=== PATIENT | female | born 1990 | race American Indian/Alaskan Native ===

== ENCOUNTER 2016-12-21 10:50 | Emergency (ER) | payer OTHER ==
[2016-12-21 10:58] VITALS: O2SAT 98; BMI 28.1
[2016-12-21] MEDS ORDERED: Levalbuterol 0.63 MG/3 ML Inhal Soln UD IH STA (11:28)
--- NOTE | 2016-12-21 11:34 | ED PDOC ---
Arrival/HPI - General Chief Complaint: Chest Pain Time Seen by Provider: 12/21/16 11:18 Historian: Patient, Partner - History of Present Illness Narrative History of Present Illness (Text): 12/21/16 11:26 A 26 year old female, whose past medical history includes asthma and migraine headaches, presents to the emergency department complaining of left sided sharp chest pain since yesterday. Patient states her pain is localized under her left breast and radiates to left armpit. She says it is worse with inspiration. She reports a headache and lightheadedness yesterday. Partner reports patient passed out for approximately 1 minute yesterday while standing, but he held her up. Patient was seen [place] [facility] [place] and discharged home after reported normal testing. Patient notes mild shortness of breath but denies any trauma, injury, fever, chills, nausea, vomiting, abdominal pain, lower extremity swelling, headache, dizziness or any other complaints at this time. Patient denies any recent travel or surgeries. Time/Duration: Other (Yesterday) Symptom Course: Unchanged Quality: Other Context: Home Past Medical History - Provider Review Nursing Documentation Reviewed: Yes - Infectious Disease Hx of Infectious Diseases: None - Cardiac Hx Cardiac Disorders: No - Pulmonary Hx Respiratory Disorders: Yes Hx Asthma: Yes - Neurological Hx Neurological Disorder: No - HEENT Hx HEENT Disorder: No - Endocrine/Metabolic Hx Endocrine Disorders: No - Hematological/Oncological Hx Blood Disorders: No - Integumentary Hx Dermatological Disorder: No - Musculoskeletal/Rheumatological Hx Musculoskeletal Disorders: No - Gastrointestinal Hx Gastrointestinal Disorders: No - Genitourinary/Gynecological Hx Genitourinary Disorders: No - Psychiatric Hx Psychophysiologic Disorder: No Hx Substance Use: No - Surgical History Hx Section: Yes (x1) Hx Dilation and Curettage: Yes (x2) - Anesthesia Hx Anesthesia: Yes Hx Anesthesia Reactions: No Family/Social History - Physician Review Nursing Documentation Reviewed: Yes Family/Social History: No Known Family HX Smoking Status: Never Smoked Hx Alcohol Use: Yes Frequency of alcohol use: Socially Hx Substance Use: No Allergies/Home Meds Allergies/Adverse Reactions: Allergies Penicillins Allergy (Verified 12/21/16 10:59) ANAPHYLAXIS -cillins Allergy (Uncoded 12/21/16 10:59) ANAPHYLAXIS seafood Allergy (Uncoded 12/21/16 10:59) ANAPHYLAXIS Review of Systems - Physician Review All systems were reviewed & negative as marked: Yes - Review of Systems Constitutional: absent: Fevers, Night Sweats Respiratory: SOB Cardiovascular: Chest Pain, Syncope Gastrointestinal: absent: Abdominal Pain, Nausea, Vomiting Neurological: Headache (resolved), Dizziness (resolved) Physical Exam Vital Signs Reviewed: Yes Vital Signs Temp Pulse Resp BP Pulse Ox 12/21/16 12:33 66 18 117/65 98 12/21/16 10:57 98.1 F 69 18 115/63 98 Temperature: Afebrile Blood Pressure: Normal Pulse: Regular Respiratory Rate: Normal Appearance: Positive for: Well-Appearing, Non-Toxic, Comfortable Pain Distress: None Mental Status: Positive for: Alert and Oriented X 3 - Systems Exam Head: Present: Atraumatic, Normocephalic Pupils: Present: PERRL Conjunctiva: Present: Normal Mouth: Present: Moist Mucous Membranes Pharnyx: Present: Normal. No: ERYTHEMA, EXUDATE Neck: Present: Normal Range of Motion Respiratory/Chest: Present: Clear to Auscultation, Good Air Exchange, Tender to Palpation (Reproducible pain under left breast and toward left axilla). No: Respiratory Distress, Accessory Muscle Use Cardiovascular: Present: Regular Rate and Rhythm, Normal S1, S2. No: Murmurs Abdomen: Present: Normal Bowel Sounds. No: Tenderness, Distention, Peritoneal Signs Back: Present: Normal Inspection Upper Extremity: Present: Normal Inspection. No: Cyanosis, Edema Lower Extremity: Present: Normal Inspection. No: Edema Neurological: Present: GCS=15, CN II-XII Intact, Speech Normal Skin: Present: Warm, Dry, Normal Color. No: Rashes Psychiatric: Present: Alert, Oriented x 3, Normal Insight, Normal Concentration Medical Decision Making ED Course and Treatment: 12/21/16 11:26 Impression: A 26 year old female with reproducible chest pain localized under left breast radiating to left axilla. Differential: muscular vs anxiety vs asthma vs PE vs acs Plan: -- Chest xray -- EKG -- Labs -- Urinalysis -- Toradol and Xopenex -- Reassess and disposition Progress Notes: EKG shows NSR at 64 BPM with normal intervals, normal axis, no ST/T changes. Interpreted by me. 12/21/16 12:54 EKG is unremarkable with unremarkable labs, including normal d-dimer and CE. The chest pain is very atypical and reproducible in this setting of a 26 y.o. female, who is very low risk for acs. Patient says pain is much improved after toradol and is behaving as a likely muscular pain. Patient will be ok for d/c and has a pmd with whom she can follow up. Regarding syncope which happened yesterday, she is safe for d/c by syncope rule. - Lab Interpretations Lab Results: 12/21/16 11:35 12/21/16 11:35 Lab Results 12/21/16 11:35: Urine Opiates Screen Negative, Urine Methadone Screen Negative, Ur Barbiturates Screen Negative, Ur Phencyclidine Scrn Negative, Ur Amphetamines Screen Negative, U Benzodiazepines Scrn Negative, U Oth Cocaine Metabols Negative, U Cannabinoids Screen Negative 12/21/16 11:35: PT 13.8 H, INR 1.25 H, APTT 30.4, D-Dimer, Quantitative 230 12/21/16 11:35: Sodium 144, Potassium 4.1, Chloride 106, Carbon Dioxide 28, Anion Gap 14, BUN 15, Creatinine 0.8, Est GFR ( Amer) > 60, Est GFR (Non- Af Amer) > 60, Random Glucose 87, Calcium 9.5, Magnesium 2.1, Total Bilirubin 1.6 H, AST 24, ALT 32, Alkaline Phosphatase 61, Lactate Dehydrogenase 494, Total Creatine Kinase 297 H, CK-MB (CK-2) 0.6, CK-MB (CK-2) % Cancelled, Troponin I < 0.01, Total Protein 8.3, Albumin 4.4, Globulin 3.9, Albumin/ Globulin Ratio 1.1, Lipase 34 12/21/16 11:35: Urine Color Dark yellow, Urine Appearance Sl cloudy, Urine pH 6.0, Ur Specific [place] 1.025, Urine Protein 100 H, Urine Glucose (UA) Negative , Urine Ketones 15 H, Urine Blood Large H, Urine Nitrate Negative, Urine Bilirubin Small H, Urine Urobilinogen 2.0 H, Ur Leukocyte Esterase Trace H, Urine RBC Tntc, Urine WBC 1 - 3, Ur Epithelial Cells 0 - 2, Urine Bacteria Few 12/21/16 11:35: WBC 5.0, RBC 4.43, Hgb 12.3, Hct 38.0, MCV 85.8, MCH 27.8, MCHC 32.4, RDW 14.1, Plt Count 233, MPV 11.7 H, Gran % 55.4, Lymph % (Auto) 36.9 H, Eaton % (Auto) 6.3 H, Eos % (Auto) 1.0 L, Baso % (Auto) 0.4, Gran # 2.79, Lymph # 1.9, Eaton # 0.3, Eos # 0.1, Baso # 0.02 I have reviewed the lab results: Yes - RAD Interpretation Radiology Orders: 12/21/16 11:25 CHEST TWO VIEWS (PA/LAT) [RAD] Stat - Medication Orders Current Medication Orders: Discontinued Medications Ketorolac Tromethamine (Toradol) 30 mg IVP STAT STA Stop: 12/21/16 11:28 Last Admin: 12/21/16 11:39 Dose: 30 mg MAR Pain Assessment Document 12/21/16 11:39 IT (Rec: 12/21/16 11:39 IT [id number]) Pain Reassessment Is this a pain reassessment? No Sleep Is patient sleeping during reassessment? No Presence of Pain Presence of Pain Yes Pain Scale Used Pain Scale Used Numeric Location Left, Right or Bilateral Left Pain Location Body Site Chest Description Description Intermittent IVP Administration Document 12/21/16 11:39 IT (Rec: 12/21/16 11:39 IT [id number]) Charges for Administration # of IVP Administrations 1 Levalbuterol HCl (Xopenex) 0.63 mg IH ONCE STA Stop: 12/21/16 11:29 Last Admin: 12/21/16 11:39 Dose: 0.63 mg - Scribe Statement The provider has reviewed the documentation as recorded by the Bre Clarke Provider Scribe Attestation: All medical record entries made by the Scribhelena were at my direction and personally dictated by me. I have reviewed the chart and agree that the record accurately reflects my personal performance of the history, physical exam, medical decision making, and the department course for this patient. I have also personally directed, reviewed, and agree with the discharge instructions and disposition. Disposition/Present on Arrival - Present on Arrival Any Indicators Present on Arrival: No History of DVT/PE: No History of Uncontrolled Diabetes: No Urinary Catheter: No History of Decub. Ulcer: No History Surgical Site Infection Following: None - Disposition Have Diagnosis and Disposition been Completed?: Yes Diagnosis: Atypical chest pain Disposition: HOME/ ROUTINE Disposition Time: 12:55 Patient Plan: Discharge Condition: GOOD Discharge Instructions (ExitCare): Chest Pain (ED) Additional Instructions: Take the naprosyn as prescribed. Use the albuterol - 2 puffs every 4 hours. Follow up with your primary care doctor and lining cutter as previously instructed. Return to the emergency department if any new concerning symptoms. Prescriptions: Albuterol HFA [Ventolin HFA 90 mcg/actuation (8 g)] 2 puff IH Q4H #1 inhaler Naproxen [Naprosyn] 500 mg PO BID PRN #30 tab PRN Reason: Pain Referrals: Neville Perez MD [Primary Care Provider] - Follow up with primary Forms: [employer] (Mongolian), SCHOOL NOTE
[2016-12-21 11:53] LABS: BASO # 0.02 K/mm3 (0.0-2.0); BASO % 0.4 % (0.0-3.0); EOS # 0.1 (0.0-0.7); GRAN # 2.79 (1.4-6.5); GRAN % 55.4 % (50.0-68.0); LYMPH # 1.9 (1.2-3.4); LYMPH % 36.9 % (22.0-35.0); MEAN CELL VOLUME 85.8 fl (80.0-105.0); MEAN CORPUSCULAR HEMOGLOBIN 27.8 pg (25.0-35.0); MEAN CORPUSCULAR HGB CONC 32.4 g/dl (31.0-37.0); MEAN PLATELET VOLUME 11.7 fl (7.0-11.0); MONO # 0.3 (0.1-0.6); MONO % 6.3 % (1.0-6.0); RED CELL DISTRIBUTION WIDTH 14.1 % (11.5-14.5)
[2016-12-21 11:54] LABS: URINE BILIRUBIN SMALL (NEGATIVE); URINE BLOOD LARGE (NEGATIVE); URINE GLUCOSE (UA) NEGATIVE (NEGATIVE); URINE KETONE 15 mg/dL (NEGATIVE); URINE LEUKOCYTE ESTERASE TRACE Leu/uL (NEGATIVE); URINE PROTEIN 100 mg/dL (<30 mg/dL)
[2016-12-21 11:56] LABS: URINE APPEARANCE SL CLOUDY (CLEAR)
[2016-12-21 11:57] LABS: URINE COLOR DARK YELLOW (YELLOW)
[2016-12-21 11:58] LABS: ALB/GLOB RATIO 1.1 (1.1-1.8); ALKALINE PHOSPHATASE 61 U/L (38-126); ALT/SGPT 32 U/L (7-56); AST/SGOT 24 U/L (14-36); BILIRUBIN,TOTAL 1.6 mg/dL (0.2-1.3); BLOOD UREA NITROGEN 15 mg/dL (7-21); CALCIUM 9.5 mg/dL (8.4-10.5); CARBON DIOXIDE 28 mmol/L (21-33); CHLORIDE 106 mmol/L (98-107); GFR AFRICAN-AMERICAN > 60; GLUCOSE,RANDOM 87 mg/dL (70-110); INR 1.25 (0.93-1.08); LIPASE 34 U/L (23-300); MAGNESIUM 2.1 mg/dL (1.7-2.2); PARTIAL THROMBOPLASTIN TIME 30.4 Seconds (25.1-36.5); POTASSIUM 4.1 mmol/L (3.6-5.0); SODIUM 144 mmol/L (132-148); TOTAL PROTEIN 8.3 g/dL (5.8-8.3)
[2016-12-21 11:59] LABS: URINE RBC TNTC /hpf (0-2)
[2016-12-21 12:00] LABS: URINE BACTERIA FEW (NEG); URINE EPITHELIAL CELLS 0 - 2 /hpf (0-5)
[2016-12-21 12:11] LABS: TROPONIN I < 0.01 ng/mL
--- NOTE | 2016-12-21 12:48 | RAD ---
HISTORY: chest pain COMPARISON: No prior. TECHNIQUE: Chest PA and lateral FINDINGS: LUNGS: No active pulmonary disease. PLEURA: No significant pleural effusion identified. No pneumothorax apparent. CARDIOVASCULAR: Normal. OSSEOUS STRUCTURES: No significant abnormalities. VISUALIZED UPPER ABDOMEN: Normal. OTHER FINDINGS: None. IMPRESSION: No active disease.
[2016-12-21 13:32] VITALS: BP 120/80; PULSE 62; RESP 17; TEMP 98.2
--- NOTE | 2016-12-21 16:40 | CARD ---
APPROVED REPORT EKG Measurement Heart [id number] <Conclusion> Normal sinus rhythm APC's LVH by voltage, could be a normal variant
== END 2016-12-21 13:32 | disposition home or self-care (01) ==
LOC: ED 10:50
DX: R07.89 Other chest pain (principal); Z88.0 Allergy status to penicillin
CPT/HCPCS: 71020; 80053; 80324; 80345; 80346; 80349; 80353; 80358; 80361; 81001; 82550; 82553; 83615; 83690; 83735; 83992; 84484; 85025; 85378; 85610; 85730; 87086; 93005; 96374; 99283; J1885